=== PATIENT | female | born 1975 | race Caucasian/White ===

== ENCOUNTER 2021-07-08 20:29 | Emergency (ER) | payer MEDICARE ==
[~2021-07-08] VITALS: Ht 162.6 cm; Wt 77.3 kg
[2021-07-08] MEDS ORDERED: NORCO 325 MG-51 TA1 PO (21:22)
[2021-07-08] MEDS ORDERED: DEXILANT60 MG PO (21:24)
[2021-07-08] MEDS ORDERED: LATUDA80 MG PO (21:25)
[2021-07-08] MEDS ORDERED: EFFEXOR XR75 M2 PO (21:25)
[2021-07-08] MEDS ORDERED: LYRICA50 MG PO (21:26)
[2021-07-08] MEDS ORDERED: HYDROXYZINE HYD50 M1 PO (21:27)
[2021-07-08] MEDS ORDERED: DESYREL 100MG100 MG PO (21:28)
[2021-07-08] MEDS ORDERED: ZONISAMIDE100 MG PO (21:30)
[2021-07-08] MEDS ORDERED: ZALEPLON10 MG PO (21:30)
[2021-07-08 21:31] LABS: BASO # 0.11 (0.02-0.10); EOS # 0.48 (0.04-0.40); EOS % 4.1 % (1.0-5.0); HEMATOCRIT 39.2 % (37.0-47.0); HEMOGLOBIN 12.8 g/dL (12.5-16.0); LYMPH# 3.96 (1.50-4.00); MEAN CELL VOLUME 94 fl (78-100); MEAN CORPUSCULAR HEMOGLOBIN 31 pg (27-31); MEAN CORPUSCULAR HGB CONC 33 g/dL (33-37); MEAN PLATELET VOLUME 9.3 fl (7.4-10.4); MONO # 0.74 (0.20-0.80); NEU # 6.39 (1.40-6.50); PLATELET COUNT 232 K/mm3 (130-400); RED BLOOD COUNT 4.16 M/mm3 (4.10-5.30); RED CELL DISTRIBUTION WIDTH 13.9 % (11.5-14.5); WHITE BLOOD COUNT 11.7 K/mm3 (4.8-10.8)
[2021-07-08] MEDS ORDERED: EFFEXOR XR150 M1 PO (21:31)
[2021-07-08 21:38] LABS: ALBUMIN 3.7 g/dL (3.5-5.0)
[2021-07-08 21:39] LABS: POTASSIUM 3.7 mmol/L (3.5-5.1)
[2021-07-08 21:40] LABS: CALCIUM 8.9 mg/dL (8.3-10.5)
[2021-07-08 21:41] LABS: TOTAL PROTEIN 6.5 g/dL (6.4-8.3)
[2021-07-08 21:43] LABS: TOTAL BILIRUBIN 0.2 mg/dL (0.2-1.2)
[2021-07-08 22:47] LABS: PH-URINE 5.5 (5.0 - 8.0); URINE APPEARANCE CLEAR; URINE BILIRUBIN NEGATIVE (NEGATIVE); URINE BLOOD NEGATIVE (NEGATIVE); URINE COLOR YELLOW; URINE GLUCOSE NEGATIVE (NEGATIVE); URINE KETONE NEGATIVE (NEGATIVE); URINE LEUKOCYTE ESTERASE NEGATIVE (NEGATIVE); URINE NITRATE NEGATIVE (NEGATIVE); URINE PROTEIN(semi-quant) NEGATIVE (NEGATIVE); URINE UROBILINOGEN NORMAL (NORMAL); URINE WBC 0-1 /hpf (0-3)
[2021-07-09 00:20] VITALS: BP 115/75
== END 2021-07-09 00:20 | disposition home or self-care (01) ==
LOC: ED 20:29
PROVIDERS: Family Medicine
DX: R51.9 Headache, unspecified (principal); F41.9 Anxiety disorder, unspecified; F32.9 Major depressive disorder, single episode, unspecified; G47.00 Insomnia, unspecified; F17.210 Nicotine dependence, cigarettes, uncomplicated; Z79.899 Other long term (current) drug therapy
CPT/HCPCS: J1885